=== PATIENT | male | born 1965 | race Caucasian/White ===

== ENCOUNTER 2018-06-19 03:15 | Emergency (ER) | payer BC ==
[2018-06-19 04:44] VITALS: BP 105/74
--- NOTE | 2018-06-19 12:47 | ED ---
Palpitations / Dysrhythmia - HPI Summary HPI Summary: A 53 y/o male presents to the ED c/o irregular pacemaker/defibrillator heart rate setting. As per triage, "Pt has pacemaker/defibrillator. Noticed HR at 70, supposed to be at 50. BP elevated for him. Pt had an MRI on Thursday, device was reset at the time for the MRI, not sure it was reset properly back to original settings". According to the patient, on Thursday he went up to [place] for a cardiac MRI. His pacemaker was setting was reset and they turned off the defibrillator part of it. His HR setting was then increased to 70 because of the MRI. He noted that they were suppose to reset it back, but a different oriana came in who was distracted and he is not entirely sure if he reset it back to 50. He stated that it is set at 50 because it reduces his arrhythmias and it was set to these conditions for a very long time. He noted that he woke up tonight around 0230 with it consistently being 70 and his blood pressure was 130/85, which is high for him. The patient would like to know whats going on and if it needs to be reset he would like someone to do it. He denies any chest pain. [employer] is Dr. Hemphill. [place] [employer] Pacemaker. - History of Current Complaint Chief Complaint: EDDysrhythmPalp Time Seen by Provider: 06/19/18 03:26 Hx Obtained From: Patient Onset/Duration: Sudden Onset, Lasting Hours, Still Present Timing: Constant Severity Currently: None Character: Fast, Irregular Aggravating: Nothing Alleviating: Nothing Associated Signs & Symptoms: Negative - Allergy/Home Medications Allergies/Adverse Reactions: Allergies Allergy/AdvReac Type Severity Reaction Status Date / Time No Known Allergies Allergy Verified 06/19/18 03:21 PMH/Surg Hx/FS Hx/Imm Hx Endocrine/Hematology History: Denies: Hx Diabetes Cardiovascular History: Reports: Hx Pacemaker/ICD - Surgical History Surgery Procedure, Year, and Place: none Infectious Disease History: Yes Infectious Disease History: Reports: Traveled Outside the [place] in Last 30 Days - Family History Known Family History: Negative: Diabetes - Social History Alcohol Use: None Substance Use Type: Reports: None Smoking Status (MU): Never Smoked Tobacco Review of Systems Negative: Fever Positive: Palpitations, Other - POSITIVE: HIGHER HR THAN BASELINE. Negative: Chest Pain All Other Systems Reviewed And Are Negative: Yes Physical Exam - Summary Physical Exam Summary: VITAL SIGNS: Reviewed. GENERAL: Patient is a well-developed and nourished male who is lying comfortable in the stretcher. Patient is not in any acute respiratory distress. HEAD AND FACE: No signs of trauma. No ecchymosis, hematomas or skull depressions. No sinus tenderness. EYES: PERRLA, EOMI x 2, No injected conjunctiva, no nystagmus. EARS: Hearing grossly intact. Ear canals and tympanic membranes are within normal limits. MOUTH: Oropharynx within normal limits. NECK: Supple, trachea is midline, no adenopathy, no JVD, no carotid bruit, no c- spine tenderness, neck with full ROM. CHEST: Symmetric, no tenderness at palpation LUNGS: Clear to auscultation bilaterally. No wheezing or crackles. CVS: Regular rate and rhythm, S1 and S2 present, no murmurs or gallops appreciated. ABDOMEN: Soft, non-tender. No signs of distention. No rebound no guarding, and no masses palpated. Bowel sounds are normal. EXTREMITIES: FROM in all major joints, no edema, no cyanosis or clubbing. NEURO: Alert and oriented x 3. No acute neurological deficits. Speech is normal and follows commands. SKIN: Dry and warm Triage Information Reviewed: Yes Vital Signs On Initial Exam: Initial Vitals Temp Pulse Resp BP Pulse Ox 98.6 F 67 16 130/91 99 06/19/18 03:18 06/19/18 03:18 06/19/18 03:18 06/19/18 03:18 06/19/18 03:18 Vital Signs Reviewed: Yes Diagnostics - Vital Signs Vital Signs Temp Pulse Resp BP Pulse Ox 06/19/18 03:18 98.6 F 67 16 130/91 99 - Laboratory Lab Statement: Any lab studies that have been ordered have been reviewed, and results considered in the medical decision making process. - EKG 0344 Cardiac Rate: Other Rate - ATRIAL-PACED OF 75 BPM EKG Rhythm: Atrial Fibrillation - ATRIAL PACED OF 75 BPM Ectopy: PVCs Summary of EKG Findings: LOW VOLTAGE AND PVCS Course/Dx - Course Course Of Treatment: A 53 y/o male presents to the ED c/o irregular pacemaker/ defibrillator heart rate setting. Physical examination findings were unremarkable. An EKG revealed atrial-paced rhythm if 75 BPM, low voltage and PVCs. No laboratory scans were done. In the ED course, the patient received no medications. Patient care was discussed with Dr. Lechuga who is covering on behalf of Dr. Hemphill. Dr. Lechuga recommends discharging patient home and patient is to call his EP physician in [place] tomorrow morning. This plan was discussed with the patient and the patient agrees. Patient seems to be sitting at 70 BPM at this time. Patient will be discharged with a diagnosis of pacemaker. Patient is to follow up with EP physician as soon as possible. Patient is to call EP physician in [place], [place] tomorrow morning at 0900. Patient is to return to ED for any new or worsening symptoms. Patient is agreeable with this plan. - Diagnoses Provider Diagnoses: Pacemaker - Physician Notifications Discussed Care Of Patient With: Larry Lechuga Time Discussed With Above Provider: 04:10 Instructed by Provider To: Other - DR. LECHUGA IS COVERING FOR DR. HEMPHILL. RECOMMENDS DISCHARGING PATIENT HOME AND PATIENT IS TO CALL EP PHYSICIAN IN [place] TOMORROW. Discharge - Sign-Out/Discharge Documenting (check all that apply): Patient Departure - DISCHARGE - Discharge Plan Condition: Stable Disposition: HOME Patient Education Materials: Heart Palpitations (ED) Referrals: Kennedy Pratt MD [Primary Care Provider] - 2 Days Additional Instructions: CALL YOUR EP PHYSICIAN FIRST THING TOMORROW MORNING AT 0900 AND SCHEDULE AN APPOINTMENT. RETURN TO ED FOR ANY NEW OR WORSENING SYMPTOMS. - Attestation Statements Document Initiated by Scribe: Yes Documenting Scribe: Shaw Zuñiga Provider For Whom Cameronibe is Documenting (Include Credential): Cheri Evangelista MD Scribe Attestation: Shaw Morales, scribed for Cheri Evangelista MD on 06/19/18 at 0423. Status of Scribe Document: Ready
== END 2018-06-19 04:46 | disposition home or self-care (01) ==
LOC: ED 03:15
DX: Z95.810 Presence of automatic (implantable) cardiac defibrillator (principal)
CPT/HCPCS: 93005; 99282

== ENCOUNTER 2019-02-25 10:30 | Emergency (ER) | payer BC ==
--- OUTSIDE RECORDS SUMMARY | 2019-02-25 10:34 | XMS REPORT | Continuity of Care Document ---
:1965 External Reference #:[id number] Author Name Jack Hemphill M.D. (transmitted by agent of provider Concepcion Vieira ) Address [address] [address] Care Team Providers Name Role Phone Kennedy Pratt MD - Family Care Team Information Claims Supervisor [phone] Medicine Problems Active Problems Provider Date Automatic implantable cardiac Jack Hemphill M.D. Onset: 01/15/2012 defibrillator in situ Paroxysmal ventricular tachycardia Jack Hemphill M.D. Onset: 01/15/2012 Cardiac arrest [facility] Schedule Onset: 06/24/2013 Malaise and fatigue Jack Hemphill M.D. Onset: 11/09/2013 Social History Type Date Description Comments Sex Unknown Tobacco Use Start: Unknown Never Smoked Cigarettes Smoking Status Reviewed: 02/21/19 Never Smoked Cigarettes ETOH Use Drinks Alcoholic Beverages Occasionally Tobacco Use Start: Unknown Patient has never smoked Recreational Drug Use Denies Drug Use Exercise Type/Frequency Exercises regularly Allergies, Adverse Reactions, Alerts Description No Known Drug Allergies Medications Active Medications SIG Qnty Indications Ordering Provider Date Effer-K 1 tab by mouth 30tabs I49.8 Jack Kaur 02/21/2019 25Meq Tablets every day Vijay Hemphill Efferv Carvedilol 1 tab by mouth 180tabs Jack Kaur 10/18/2018 12.5mg twice daily Vijay Hemphill Tablets Entresto Take 1 Tablet By 174tabs I42.9 Debra Grove, 06/30/2018 24-26mg Mouth Twice A N.P. Tablets Day Inspra take 1/2 tablet 90tabs Jack Kaur 08/12/2012 25mg Tablets by mouth daily Vijay Hemphill Immunizations Description No Information Available Vital Signs Date Vital Result Comment 02/21/2019 9:11am Height 68 inches 5'8" Weight 154.50 lb with shoes Heart Rate 54 /min left radial reg BP Systolic Sitting 100 mmHg ule reg cuff BP Diastolic Sitting 72 mmHg ule reg cuff BP Systolic Standing 90 mmHg ule reg cuff BP Diastolic Standing 68 mmHg ule reg cuff BMI (Body Mass Index) 23.5 kg/m2 Ejection Fraction 30-35% cl% echo 06/04/18 10/18/2018 9:05am Height 68 inches 5'8" Weight 156.50 lb Clothes/shoes Heart Rate 52 /min BP Systolic Sitting 106 mmHg Left Arm (Regular Cuff) BP Diastolic Sitting 68 mmHg Left Arm (Regular Cuff) BP Systolic Standing 104 mmHg BP Diastolic Standing 66 mmHg BMI (Body Mass Index) 23.8 kg/m2 Ejection Fraction 30-35% Closer to 30% Echo 06/04/2018 Results Description No Information Available Procedures Date Code Description Status 02/21/2019 24672 EKG Tracing & Interpretation Completed 09/15/2018 84253 EKG Tracing & Interpretation Completed Medical Devices Description No Information Available Encounters Type Date Location Provider Dx Diagnosis Office Visit 10/18/2018 [facility] Debra Grove, I47.2 Ventricular 9:30a N.P. tachycardia R94.31 Abnormal electrocardiogram [ECG] [EKG] Z95.810 Presence of automatic (implantable) cardiac defibrillator I42.9 Cardiomyopathy, unspecified Office Visit 09/15/2018 10:00a [facility] Jack Kaur I47.2 Ventricular Vijay Hemphill tachycardia I42.9 Cardiomyopathy, unspecified R94.31 Abnormal electrocardiogram [ECG] [EKG] Z95.810 Presence of automatic (implantable) cardiac defibrillator Z86.74 Personal history of sudden cardiac arrest Assessments Date Code Description Provider 02/21/2019 Andrew47.2 Ventricular tachycardia Jack Hemphill M.D. 02/21/2019 R94.31 Abnormal electrocardiogram [ECG] [EKG] Jack Hemphill M.D. 02/21/2019 Z95.810 Presence of automatic (implantable) Jack Hemphill M.D. cardiac defibrillator 02/21/2019 I42.9 Cardiomyopathy, unspecified Jack Hemphill M.D. 02/21/2019 I49.8 Palpitations Jack Hemphill M.D. 10/18/2018 I47.2 Ventricular tachycardia Debra S. Foster, N.P. 10/18/2018 R94.31 Abnormal electrocardiogram [ECG] [EKG] Debra S. Foster, N.P. 10/18/2018 Z95.810 Presence of automatic (implantable) Debra S. Foster, N.P. cardiac defibrillator 10/18/2018 I42.9 Cardiomyopathy, unspecified Debra S. Foster, N.P. 09/15/2018 I47.2 Ventricular tachycardia Jack Hemphill M.D. 09/15/2018 I42.9 Cardiomyopathy, unspecified Jack Hemphill M.D. 09/15/2018 R94.31 Abnormal electrocardiogram [ECG] [EKG] Jack Hemphill M.D. 09/15/2018 Z95.810 Presence of automatic (implantable) Jack Hemphill M.D. cardiac defibrillator 09/15/2018 Z86.74 Personal history of sudden cardiac arrest Jack Hemphill M.D. Plan of Treatment 02/21/2019 - Jack Hemphill M.D.I47.2 Ventricular xlpgkmirnkfF93.31 Abnormal electrocardiogram [ECG] [EKG]Z95.810 Presence of automatic (implantable ) cardiac utjrmubexeudfA38.9 Cardiomyopathy, qrhkavasbnbX88.8 PalpitationsNew Medication:Effer-K 25 Meq - 1 tab by mouth every dayFollow up:please obtain consult and pacer interrogation from Dr. Flores 02/2019 please obtain cardiaxc pet scan from [facility] and consult from Dr. Jefferson at [facility] 6 m Functional Status Description No Information Available Mental Status Description No Information Available Referrals Description No Information Available
--- OUTSIDE RECORDS SUMMARY | 2019-02-25 10:34 | XMS REPORT | Continuity of Care Document ---
:1965 External Reference #:[id number] Author Name Cisco Molina Care Team Providers Name Role Phone Kennedy Pratt MD - Family Care Team Information Rnfa [phone] Medicine Problems Active Problems Provider Date Automatic implantable cardiac Jack Hemphill M.D. Onset: 01/15/2012 defibrillator in situ Paroxysmal ventricular tachycardia Jack Hemphill M.D. Onset: 01/15/2012 Cardiac arrest [facility] Schedule Onset: 06/24/2013 Malaise and fatigue Jack Hemphill M.D. Onset: 11/09/2013 Social History Type Date Description Comments Sex Unknown Tobacco Use Start: Unknown Never Smoked Cigarettes Smoking Status Reviewed: 10/18/18 Never Smoked Cigarettes ETOH Use Drinks Alcoholic Beverages Occasionally Tobacco Use Start: Unknown Patient has never smoked Recreational Drug Use Denies Drug Use Exercise Type/Frequency Exercises regularly Allergies, Adverse Reactions, Alerts Description No Known Drug Allergies Medications Active Medications SIG Qnty Indications Ordering Provider Date Carvedilol 1 tab by mouth 180tabs Jack Kaur 10/18/2018 12.5mg twice daily Vijay Hemphill Tablets Entresto Take 1 Tablet By 174tabs I42.9 Debra Grove, 06/30/2018 24-26mg Mouth Twice A N.P. Tablets Day Inspra take 1/2 tablet 90tabs Jack Kaur 08/12/2012 25mg Tablets by mouth daily Vijay Hemphill Immunizations Description No Information Available Vital Signs Date Vital Result Comment 10/18/2018 9:05am Height 68 inches 5'8" Weight 156.50 lb Clothes/shoes Heart Rate 52 /min BP Systolic Sitting 106 mmHg Left Arm (Regular Cuff) BP Diastolic Sitting 68 mmHg Left Arm (Regular Cuff) BP Systolic Standing 104 mmHg BP Diastolic Standing 66 mmHg BMI (Body Mass Index) 23.8 kg/m2 Ejection Fraction 30-35% Closer to 30% Echo 06/04/2018 09/15/2018 9:43am Height 68 inches 5'8" Weight 158.12 lb with shoes Heart Rate 72 /min Radial BP Systolic Sitting 110 mmHg Lue reg cuff BP Diastolic Sitting 70 mmHg Lue reg cuff BP Systolic Standing 108 mmHg Lue reg cuff BP Diastolic Standing 70 mmHg Lue reg cuff BP Systolic Lying Down 91 mmHg la repeat sitting BP Diastolic Lying Down 60 mmHg la repeat sitting BMI (Body Mass Index) 24.0 kg/m2 Ejection Fraction 30-35% Echo 06/04/2018 Results Description No Information Available Procedures Date Code Description Status 09/15/2018 11309 EKG Tracing & Interpretation Completed Medical Devices Description No Information Available Encounters Type Date Location Provider Dx Diagnosis Office Visit 10/18/2018 [facility] Debra Grove, I47.2 Ventricular 9:30a N.P. tachycardia R94.31 Abnormal electrocardiogram [ECG] [EKG] Z95.810 Presence of automatic (implantable) cardiac defibrillator I42.9 Cardiomyopathy, unspecified Office Visit 09/15/2018 10:00a [facility] Jack Kaur I47.2 Ventricular Vijay Hemphill tachycardia I42.9 Cardiomyopathy, unspecified R94.31 Abnormal electrocardiogram [ECG] [EKG] Z95.810 Presence of automatic (implantable) cardiac defibrillator Z86.74 Personal history of sudden cardiac arrest Assessments Date Code Description Provider 10/18/2018 I47.2 Ventricular tachycardia Derba S. Perfecto, N.P. 10/18/2018 R94.31 Abnormal electrocardiogram [ECG] [EKG] Debra S. Perfecto, N.P. 10/18/2018 Z95.810 Presence of automatic (implantable) Debra S. Perfecto, N.P. cardiac defibrillator 10/18/2018 I42.9 Cardiomyopathy, unspecified Debra S. Perfecto, N.P. 09/15/2018 I47.2 Ventricular tachycardia Jack Hemphill M.D. 09/15/2018 I42.9 Cardiomyopathy, unspecified Jack Hemphill M.D. 09/15/2018 R94.31 Abnormal electrocardiogram [ECG] [EKG] Jack Hemphill M.D. 09/15/2018 Z95.810 Presence of automatic (implantable) Jack Hemphill M.D. cardiac defibrillator 09/15/2018 Z86.74 Personal history of sudden cardiac arrest Jack Hemphill M.D. Plan of Treatment 10/18/2018 - Debra Grove N.P.I47.2 Ventricular pydnecgggnaB87.31 Abnormal electrocardiogram [ECG] [EKG]Z95.810 Presence of automatic (implantable) cardiac qmlnfellugstsX30.9 Cardiomyopathy, unspecifiedFollow up:[facility] 2018Recommendations:Continue carvedilol at current dose Continue entresto Have PET scan. Functional Status Description No Information Available Mental Status Description No Information Available Referrals Description No Information Available
[2019-02-25 10:40] VITALS: BP 96/53
--- NOTE | 2019-02-25 11:48 | UC ---
Lower Extremity/Ankle HPI - HPI Summary HPI Summary: 53-year-old male who has had right calf pain for approximately one month. He denies any known injury. He had been on a long car ride up to the [place] in January. He is unable to describe the pain. He has no history of DVT or pulmonary embolus. He's a nonsmoker. - History of Current Complaint Chief Complaint: UCLowerExtremity Stated Complaint: LEG PAIN Time Seen by Provider: 02/25/19 11:24 Hx Obtained From: Patient Onset/Duration: Gradual Onset Severity Initially: Mild Severity Currently: Mild Pain Intensity: 3 Aggravating Factor(s): Nothing Alleviating Factor(s): Nothing Able to Bear Weight: Yes - Allergies/Home Medications Allergies/Adverse Reactions: Allergies Allergy/AdvReac Type Severity Reaction Status Date / Time No Known Allergies Allergy Verified 02/25/19 10:40 PMH/Surg Hx/FS Hx/Imm Hx Previously Healthy: Yes - Surgical History Surgical History: Yes Surgery Procedure, Year, and Place: pacemaker 2009 - Family History Known Family History: Negative: Diabetes - Social History Alcohol Use: Rare Substance Use Type: None Smoking Status (MU): Never Smoked Tobacco Review of Systems All Other Systems Reviewed And Are Negative: Yes Musculoskeletal: Positive: Calf Tenderness - Patient states no calf tenderness on palpation but he can feel the pain intermittently and more when he will hyperextend his right foot. He is unable to describe the pain. Is Patient Immunocompromised?: No Physical Exam Triage Information Reviewed: Yes Appearance: Well-Appearing, No Pain Distress, Well-Nourished Vital Signs: Initial Vital Signs Temp 98.3 F 02/25/19 10:35 Pulse 50 02/25/19 10:35 Resp 12 02/25/19 10:35 BP 96/53 02/25/19 10:35 Pulse Ox 100 02/25/19 10:35 Vital Signs Reviewed: Yes Musculoskeletal: Positive: Strength Intact, ROM Intact, No Edema, Other: - Full range of motion, good peripheral pulses, neuro sensation, capillary refill. Neurological Exam: Normal Neurological: Positive: Alert, Muscle Tone Normal Psychological Exam: Normal Skin Exam: Normal Skin: Positive: Other - No bruising, erythema, deformity or swelling. Calf is nontender on palpation. Lower Extremity Course/Dx - Course Course Of Treatment: Venous Doppler right leg:FINDINGS: The common femoral, femoral, profunda femoral and popliteal veins all demonstrate normal compressibility, augmentation with compression and phasic response with respiration. The posterior tibial and peroneal veins demonstrate normal compressibility and augmentation with compression. IMPRESSION: NO EVIDENCE FOR DEEP VENOUS THROMBOSIS. The patient is to follow-up with his primary care provider as needed for any worsening symptoms. - Differential Dx/Diagnosis Provider Diagnosis: Pain of right lower leg Discharge ED - Sign-Out/Discharge Documenting (check all that apply): Patient Departure All imaging exams completed and their final reports reviewed: Yes - Discharge Plan Condition: Good Disposition: HOME Patient Education Materials: Leg Pain (ED) Referrals: Kennedy Pratt MD [Primary Care Provider] - Additional Instructions: Follow-up with your primary care provider as needed if any worsening symptoms. - Billing Disposition and Condition Condition: GOOD Disposition: Home
== END 2019-02-25 12:50 | disposition home or self-care (01) ==
LOC: UCEAST 10:30
DX: M79.661 Pain in right lower leg (principal); Z95.0 Presence of cardiac pacemaker
CPT/HCPCS: 99211; G0463